=== PATIENT | male | born 1930 | race Caucasian/White ===

== ENCOUNTER 2016-04-26 13:54 | Emergency (ER) | payer OTHER ==
[~2016-04-26] VITALS: Ht 154.9 cm; Wt 62.0 kg
[2016-04-26 14:06] VITALS: Ht 154.9 cm; Wt 62.0 kg
[2016-04-26] MEDS ORDERED: SOD CHLORIDE 0.9% 1,000 ML IV STA (14:30)
--- NOTE | 2016-04-26 14:52 | RADRPT ---
PROCEDURE: XR Chest. CLINICAL INDICATION: Chest pain TECHNIQUE: Single frontal view of the chest was obtained. COMPARISON: None FINDINGS: The heart is within normal limits. The thoracic aorta is calcified. The lungs are clear. There is no pleural effusion or pneumothorax. The patient is status post fixation of the right humerus with a metallic plate and multiple screws. There is an impacted fracture of the left humeral neck. There are healed fractures of the bilateral clavicles. RPTAT: AA IMPRESSION: Impacted fracture of the left humeral neck, age indeterminate. Dedicated left shoulder x-ray is efren mmended. Calcified aorta consistent with atherosclerotic disease. .Theodore William MD, MD Date Time Electronically viewed and signed by .Theodore William MD, on 04/26/2016 14:52 .S/
[2016-04-26] MEDS ORDERED: ATOR80TA75 PO (14:59)
[2016-04-26] MEDS ORDERED: DOXA4TAB3 PO (15:00)
[2016-04-26] MEDS ORDERED: HYDR-3671 PO (15:00)
[2016-04-26 15:07] LABS: ADD SCAN DIFF NO
[2016-04-26 15:18] LABS: ALBUMIN 4.1 g/dl (3.3-4.9); INR 0.97; PROTIME 12.9 Sec (12.2-14.2)
[2016-04-26 15:19] LABS: PARTIAL THROMBOPLASTIN TIME 30.3 Sec (25.0-35.0); POTASSIUM 4.9 mmol/L (3.5-5.1)
[2016-04-26 15:21] LABS: ALBUMIN/GLOBULIN RATIO 1.64; BILIRUBIN,INDIRECT 0.4 mg/dl (0-1.1); BILIRUBIN,TOTAL 0.4 mg/dl (0.2-1.3); CALCIUM 8.7 mg/dl (8.4-10.2); CREATININE 1.33 mg/dl (0.61-1.24); TOTAL PROTEIN 6.6 g/dl (6.1-8.1)
--- NOTE | 2016-04-26 15:23 | RADRPT ---
PROCEDURE: CT brain without IV contrast. CLINICAL INDICATION: Weakness/code stroke. TECHNIQUE: CT examination of the brain was performed on a 64-slice multidetector scanner. The pat ient was examined without IV contrast. Sagittal and coronal reformatted images were made. The imag es were reviewed on a PACS workstation. Radiation dose: Total CTDIvol: 36 mGY. Total DLP: 554 mGy-cm. COMPARISON: None available. FINDINGS: There is 4 mm wide left convexity subacute subdural hematoma. There is 3 mm wide right convexity tucker bacute subdural hematoma. There are lacunar infarcts in the both lentiform nuclei and left caudate nucleus, likely old. There is mild cerebral atrophy. There is mild periventricular low density white matter changes, lik elda microvascular ischemic changes. The alvarez/white matter differentiation is well preserved. There is no other abnormal intra-axial high, low density lesion, suggesting tumor, infarct , bleeding, av malformation or inflammatory mass. There is calcified atherosclerosis of the intracranial internal carotid arteries. The visualized pa ranasal sinuses and mastoid air cells are clear. The orbits are unremarkable. The calvarium is int act. No scalp abnormalities are seen. IMPRESSION: 1. 4 mm wide left convexity subacute subdural hematoma. 3 mm wide right convexity subacute subdura l hematoma. No midline shift. Recommend MRI brain to confirm. 2. 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 3. Mild cerebral atrophy. 4. Mild periventricular low density white matter changes, likely microvascular ischemic changes. 5. Calcified atherosclerosis of the intracranial internal carotid arteries. 6. Critical finding was given to the ER physician, Dr. Merino, 03:20 p.m., RPTAT: GG .Kristopher Canada MD, MD Date Time Electronically viewed and signed by .Kristopher Canada MD, MD on 04/26/2016 15:23 .Y/
[2016-04-26 15:30] LABS: ABNORMAL IP MESSAGE 1; BASOPHILS % 0.3 % (0.0-2.0); EOSINOPHILS % 0.4 % (0.0-7.0); HEMATOCRIT 31.3 % (42.0-52.0); HEMOGLOBIN 10.4 g/dl (14.0-18.0); LYMPHOCYTES # 0.4 10^3/ul (0.8-2.9); LYMPHOCYTES % 5.6 % (15.0-51.0); MEAN CORPUSCULAR HEMOGLOBIN 30.8 pg (29.0-33.0); MEAN CORPUSCULAR HGB CONC 33.2 g/dl (32.0-37.0); MEAN CORPUSCULAR VOLUME 92.6 fl (82.0-101.0); MEAN PLATELET VOLUME 9.6 fl (7.4-10.4); MONOCYTE # 0.8 10^3/ul (0.3-0.9); MONOCYTES % 10.5 % (0.0-11.0); NEUTROPHIL # 6.5 10^3/ul (1.6-7.5); NEUTROPHILS % 82.8 % (39.0-77.0); PLATELET COUNT 196 10^3/UL (140-415); RED BLOOD COUNT 3.38 10^6/ul (4.70-6.10); RED CELL DISTRIBUTION WIDTH 11.9 % (11.5-14.5); WHITE BLOOD COUNT 7.9 10^3/ul (4.8-10.8)
[2016-04-26 15:32] LABS: TROPONIN-I 0.028 ng/ml (0.00-0.12)
--- NOTE | 2016-04-26 17:43 | ERD ---
ER Documentation Chief Complaint Date/Time DATE: 04/26/16 TIME: 17:38 Chief Complaint c/o weakness, dizziness, blurred vision. fall no injury/no ko HPI This is an 85-year-old male who was discharged yesterday from [facility] after sustaining a fall and had a subdural hematoma with a very small subarachnoid hemorrhage. The patient had repeat CT scans and MRIs which showed a stable nonoperative brain bleed. The patient says he felt nauseated all day yesterday when he was discharged and threw up once when he got home. Today the family states that he was looking slightly pale and sweaty for a few minutes. He stated about an hour later he was trying to walk and he felt dizzy and he was using his walker. He did stumble backwards but did not have a syncopal episode. He did not fall as the family caught him. The patient states that he thinks he fell just because he lost his balance. The patient says that when he was closing his eyes he was seeing some colors that when he opened his eyes they went away and he was not hallucinating. He had no altered mental status no focal neurological complaints. Patient is on blood pressure medication hydrochlorothiazide and metoprolol at home. However, [place] Adding more more medications and he was sent home with 4-5 different blood pressure medications. Patient states he took his blood pressure medication last night and today. At home blood pressure checks were having systolics between 70s and 90s range. He had no chest pain or shortness of breath no abdominal pain no vomiting or diarrhea today ROS All systems reviewed and are negative except as per history of present illness. Medications Home Meds Reported Medications Hydralazine Hcl* (Hydralazine Hcl*) 25 Mg Tab, 25 MG PO TID, #90 TAB 04/26/16 Doxazosin Mesylate* (Doxazosin Mesylate*) 4 Mg Tablet, 6 MG PO HS, TAB 04/26/16 Atorvastatin* (Atorvastatin*) 80 Mg Tablet, 80 MG PO QHS, #30 TAB 04/26/16 Allergies Allergies: Coded Allergies: No Known Allergy (Unverified , 04/26/16) PMhx/Soc History of Surgery: Yes (right knee replacement ) Anesthesia Reaction: No Hx Neurological Disorder: Yes (Brain bleed 1 week ago) Hx Respiratory Disorders: No Hx Cardiac Disorders: Yes (HTN, 2 stent placement, ) Hx Alcohol Use: No Hx Substance Use: No Hx Tobacco Use: No Smoking Status: Former smoker FmHx Family History: No coronary disease Physical Exam Vitals Vital Signs Date Time Temp Pulse Resp B/P Pulse Ox O2 Delivery O2 Flow Rate FiO2 04/26/16 16:09 98.2 68 16 126/42 100 Room Air 04/26/16 14:06 98.1 78 16 96/74 100 Physical Exam Const: Well-developed, well-nourished Head: Atraumatic, normocephalic Eyes: Normal Conjunctiva, PERRLA, EOMI, normal sclera, no nystagmus ENT: Normal External Ears, Nose and Mouth, moist mucus membranes. Neck: Full range of motion. No meningismus, no lymphadenopathy. Resp: Clear to auscultation bilaterally, no wheezing, rhonchi, rales Cardio: Regular rate and rhythm, no murmurs, S1 S2 present Abd: Soft, non tender x 4, non distended. Normal bowel sounds, no guarding or rebound, no pulsitile abdominal masses or bruits Skin: No petechiae or rashes, no ecchymosis , no maculopapular rash Back: No midline or flank tenderness Ext: No cyanosis, or edema, FROM x 4, normal inspection, neurovascularly intact x 4 Neur: Awake and alert, STR 5/5 x 4, sensation intact x 4, no focal findings, cerebellum intact Psych: Normal Mood and Affect Result Diagram: 04/26/16 1500 04/26/16 1500 Results 24 hrs Laboratory Tests Test 04/26/16 15:00 Activated Partial Thromboplast Time 30.3Sec Alanine Aminotransferase (ALT/SGPT) 32IU/L Albumin 4.1g/dl Albumin/Globulin Ratio 1.64 Alkaline Phosphatase 88IU/L Anion Gap 17 Aspartate Amino Transf (AST/SGOT) 40IU/L Basophils # 0.010^3/ul Basophils % 0.3% Blood Urea Nitrogen 17mg/dl Calcium Level 8.7mg/dl Carbon Dioxide Level 26mmol/L Chloride Level 99mmol/L Creatinine 1.33mg/dl Direct Bilirubin 0.00mg/dl Eosinophils # 0.010^3/ul Eosinophils % 0.4% Globulin 2.50g/dl Glucose Level 126mg/dl Hematocrit 31.3% Hemoglobin 10.4g/dl INR International Normalized Ratio 0.97 Indirect Bilirubin 0.4mg/dl Lymphocytes # 0.410^3/ul Lymphocytes % 5.6% Mean Corpuscular Hemoglobin 30.8pg Mean Corpuscular Hemoglobin Concent 33.2g/dl Mean Corpuscular Volume 92.6fl Mean Platelet Volume 9.6fl Monocytes # 0.810^3/ul Monocytes % 10.5% Neutrophils # 6.510^3/ul Neutrophils % 82.8% Nucleated Red Blood Cells # 0.010^3/ul Nucleated Red Blood Cells % 0.0/100WBC Platelet Count 26363^3/UL Potassium Level 4.9mmol/L Prothrombin Time 12.9Sec Prothrombin Time Ratio 1.0 Red Blood Count 3.3810^6/ul Red Cell Distribution Width 11.9% Sodium Level 137mmol/L Total Bilirubin 0.4mg/dl Total Protein 6.6g/dl Troponin I 0.028ng/ml White Blood Count 7.910^3/ul Current Medications Medications (Trade) Dose Ordered Sig/Arthur Route PRN Reason Start Time Stop Time Status Last Admin Dose Admin Sodium Chloride (NS) 1,000 ml @ 1,000 mls/hr Q1H STAT IV 04/26/16 14:30 04/26/16 15:29 DC 04/26/16 15:00 Procedures/MDM EKG: Rate/Rhythm: Normal sinus rhythm normal axis normal intervals, elevated T waves in the inferior leads in V1 and V2 QRS, ST, QT: NORMAL MA, QRS, QT] Impression: NORMAL EKG PROCEDURE: CT brain without IV contrast. CLINICAL INDICATION: Weakness/code stroke. TECHNIQUE: CT examination of the brain was performed on a 64-slice multidetector scanner. The patient was examined without IV contrast. Sagittal and coronal reformatted images were made. The images were reviewed on a PACS workstation. Radiation dose: Total CTDIvol: 36 mGY. Total DLP: 554 mGy-cm. COMPARISON: None available. FINDINGS: There is 4 mm wide left convexity subacute subdural hematoma. There is 3 mm wide right convexity subacute subdural hematoma. There are lacunar infarcts in the both lentiform nuclei and left caudate nucleus, likely old. There is mild cerebral atrophy. There is mild periventricular low density white matter changes, likely microvascular ischemic changes. The alvarez/white matter differentiation is well preserved. There is no other abnormal intra- axial high, low density lesion, suggesting tumor, infarct , bleeding, av malformation or inflammatory mass. There is calcified atherosclerosis of the intracranial internal carotid arteries. The visualized paranasal sinuses and mastoid air cells are clear. The orbits are unremarkable. The calvarium is intact. No scalp abnormalities are seen. IMPRESSION: 1. 4 mm wide left convexity subacute subdural hematoma. 3 mm wide right convexity subacute subdural hematoma. No midline shift. Recommend MRI brain to confirm. 2. 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 3. Mild cerebral atrophy. 4. Mild periventricular low density white matter changes, likely microvascular ischemic changes. 5. Calcified atherosclerosis of the intracranial internal carotid arteries. 6. Critical finding was given to the ER physician, Dr. Buenrostro, 03:20 p.m., RPTAT: GG .Kristopher Canada MD, Date Time Electronically viewed and signed by .Kristopher Canada MD, MD on 04/26/2016 15:23 .Y/ CC: REBECCA BUENROSTRO DO PROCEDURE: XR Chest. CLINICAL INDICATION: Chest pain TECHNIQUE: Single frontal view of the chest was obtained. COMPARISON: None FINDINGS: The heart is within normal limits. The thoracic aorta is calcified. The lungs are clear. There is no pleural effusion or pneumothorax. The patient is status post fixation of the right humerus with a metallic plate and multiple screws. There is an impacted fracture of the left humeral neck. There are healed fractures of the bilateral clavicles. RPTAT: AA IMPRESSION: Impacted fracture of the left humeral neck, age indeterminate. Dedicated left shoulder x-ray is recommended. Calcified aorta consistent with atherosclerotic disease. .Theodore William MD, Date Time Electronically viewed and signed by .Theodore William MD, on 04/26/2016 14: 52 .S/ CC: REBECCA BUENROSTRO DO After fluids the blood pressure is 126/74. The patient is ambulatory without symptoms. I feel the patient's blood pressure is being overtreated this was blood pressure was low this morning and is why he was symptomatic. Reviewed a plan to put him back to baseline meds at this time and follow blood pressure at home. I discussed this with the patient's family Dr. Dumont near Departure Diagnosis: Primary Impression: Hypotension Hypotension type: unspecified hypotension type Qualified Code: I95.9 - Hypotension, unspecified hypotension type Condition: Stable Patient Instructions: Low Blood Pressure (Hypotension) REBECCA BUENROSTRO DO Apr 26, 2016 17:43
[2016-04-26 17:45] VITALS: BP 134/67; PULSE 78; RESP 16; TEMP 98.7
== END 2016-04-26 17:50 | disposition home or self-care (01) ==
LOC: E/R 13:54 → EDBD 13:54 → E/R 17:50
DX: I95.9 Hypotension, unspecified (principal); I10 Essential (primary) hypertension; R07.9 Chest pain, unspecified; Z98.61 Coronary angioplasty status; Z96.651 Presence of right artificial knee joint; Z87.891 Personal history of nicotine dependence
CPT/HCPCS: 36415; 70450; 71010; 80053; 84484; 85025; 85610; 85730; 99285; J7030; 93005